=== PATIENT | male | born 1955 | race Caucasian/White ===

== ENCOUNTER → 2024-02-17 07:28 | Outpatient (REF) | payer MEDICARE, SELFPAY ==
[2024-02-17 08:47] LABS: HDL Cholesterol 51 mg/dl; LDL Cholesterol, Calculated 90 mg/dl; Total Cholesterol 159 mg/dl (50-199); Triglyceride 94 mg/dl (10-149); Very Low Density Lipoprotein 18 mg/dl (0-30)
[2024-02-17 10:57] LABS: TSH 3.27 uIU/ml (0.47-4.68)
== END ==
LOC: REG 07:28
PROVIDERS: ATTENDING PHYSICIAN Specialist
DX: I10 Essential (primary) hypertension (principal); E03.9 Hypothyroidism, unspecified
CPT/HCPCS: 36415; 80061; 84443

== ENCOUNTER → 2024-03-22 12:36 | Outpatient (REF) | payer MEDICARE, SELFPAY ==
[2024-03-22 14:27] LABS: Erythrocyte Sed Rate 1 mm/hour (0-20)
[2024-03-22 15:11] LABS: C-Reactive Protein < 5.00 mg/L (0.0-10.00)
== END ==
LOC: REG 12:36
PROVIDERS: ATTENDING PHYSICIAN Specialist; FAMILY PHYSICIAN Family Medicine
DX: I10 Essential (primary) hypertension (principal)
CPT/HCPCS: 36415; 85652; 86140

== ENCOUNTER → 2024-06-13 07:27 | Outpatient (REF) | payer MEDICARE, SELFPAY ==
[2024-06-13 10:11] LABS: TSH 4.63 uIU/ml (0.47-4.68)
== END ==
LOC: REG 07:27
PROVIDERS: ATTENDING PHYSICIAN Family Medicine
DX: E03.9 Hypothyroidism, unspecified (principal)
CPT/HCPCS: 36415; 84443

== ENCOUNTER → 2024-08-08 07:55 | Outpatient (REF) | payer MEDICARE, SELFPAY ==
[2024-08-08 09:44] LABS: Free T4 1.32 ng/dl (0.78-2.19)
[2024-08-08 09:58] LABS: TSH 1.78 uIU/ml (0.47-4.68)
== END ==
LOC: REG 07:55
PROVIDERS: ATTENDING PHYSICIAN Family Medicine
DX: E03.9 Hypothyroidism, unspecified (principal)
CPT/HCPCS: 36415; 84439; 84443

== ENCOUNTER → 2024-10-26 07:22 | Outpatient (REF) | payer MEDICARE, SELFPAY ==
[2024-10-26 08:28] LABS: % Basophils 0.7 % (0-2); % Eosinophils 1.9 % (0-6); % Immature Granulocytes 0.2 % (0-0.5); % Lymphocytes 29.7 % (20.5-51.1); % Neutrophils 55.5 % (42.2-75.2); Absolute Eosinophils 0.1 10^3/uL (0-0.7); Absolute Lymphocytes 1.3 10^3/uL (1.2-3.4); Absolute Monocytes 0.5 10^3/uL (0.1-0.6); Absolute Neutrophils 2.4 10^3/uL (1.4-6.5); Hematocrit 45.3 % (39.0-52.0); Hemoglobin 15.7 g/dL (13.0-18.0); Mean Corp Hgb Conc. 34.7 g/dL (33.0-37.0); Mean Corpuscular Hgb 33.4 pg (27.0-31.0); Mean Corpuscular Volume 96.4 fL (80.0-94.0); Nucleated Red Blood Cells % 0 % (-); Platelet Count 143 10^3/uL (130-400); Red Cell Dist. Width 12.7 % (11.5-14.5); White Blood Cell Count 4.2 10^3/uL (4.8-10.8)
[2024-10-26 08:36] LABS: ALT (SGPT) 18 U/L (0-50); AST (SGOT) 27 U/L (17-59); Albumin 4.5 g/dl (3.5-5.0); Alkaline Phosphatase 61 U/L (38-126); Blood Urea Nitrogen 19 mg/dl (9-20); Calcium 9.3 mg/dl (8.4-10.2); Carbon Dioxide 33 mmol/L (22-30); Chloride 103 mmol/L (98-107); Glucose 85 mg/dl (70-99); HDL Cholesterol 52 mg/dl; Iron 149 ug/dl (49-181); LDL Cholesterol, Calculated 105 mg/dl; Magnesium 2.3 mg/dl (1.6-2.3); Sodium 140 mmol/L (135-145); Total Bilirubin 1.1 mg/dl (0.2-1.3); Total Cholesterol 179 mg/dl (50-199); Total Protein 7.2 g/dl (6.3-8.2); Triglyceride 110 mg/dl (10-149); Very Low Density Lipoprotein 22 mg/dl (0-30); eGFR > 60.00
[2024-10-26 08:49] LABS: Potassium 4.6 mmol/L (3.5-5.1)
[2024-10-26 08:54] LABS: Glycohemoglobin (HgbA1c) 4.9 % (4.0-5.6); Vitamin D, 25-OH*** 65.5 ng/mL (30-80)
[2024-10-26 11:08] LABS: PSA, Total - Screen 0.87 ng/ml (0.0-4.0)
[2024-10-26 11:27] LABS: Vitamin B12 565 pg/ml (239-931)
[2024-10-26 12:00] LABS: Erythrocyte Sed Rate 4 mm/hour (0-20)
[2024-10-27 21:01] LABS: Zinc 78.4 ug/dL (60.0-120.0)
== END ==
LOC: REG 07:22
PROVIDERS: ATTENDING PHYSICIAN Family Medicine; FAMILY PHYSICIAN Specialist
DX: I10 Essential (primary) hypertension (principal); E03.9 Hypothyroidism, unspecified; R79.9 Abnormal finding of blood chemistry, unspecified; R74.01 Elevation of levels of liver transaminase levels; R79.89 Other specified abnormal findings of blood chemistry; Z12.5 Encounter for screening for malignant neoplasm of prostate; Z13.1 Encounter for screening for diabetes mellitus; E87.5 Hyperkalemia; Z79.899 Other long term (current) drug therapy
CPT/HCPCS: 36415; 80053; 80061; 82306; 82607; 83036; 83540; 83735; 84443; 84630; 85025; 85652; G0103

== ENCOUNTER → 2024-12-26 07:31 | Outpatient (REF) | payer MEDICARE, SELFPAY ==
[2024-12-26 09:17] LABS: TSH Reflex To Free T4 2.08 uIU/ml (0.47-4.68)
== END ==
LOC: REG 07:31
PROVIDERS: ATTENDING PHYSICIAN Family Medicine
DX: E03.9 Hypothyroidism, unspecified (principal)
CPT/HCPCS: 36415; 84443

== ENCOUNTER → 2025-02-08 07:43 | Outpatient (REF) | payer MEDICARE, SELFPAY ==
[2025-02-08 10:09] LABS: HDL Cholesterol 54 mg/dl; LDL Cholesterol, Calculated 93 mg/dl; Total Cholesterol 164 mg/dl (50-199); Triglyceride 87 mg/dl (10-149); Very Low Density Lipoprotein 17 mg/dl (0-30)
[2025-02-08 10:28] LABS: TSH Reflex To Free T4 1.37 uIU/ml (0.47-4.68)
== END ==
LOC: REG 07:43
PROVIDERS: ATTENDING PHYSICIAN Family Medicine
DX: E78.00 Pure hypercholesterolemia, unspecified (principal)
CPT/HCPCS: 36415; 80061; 84443

== ENCOUNTER → 2025-05-15 14:45 | Outpatient (REF) | payer MEDICARE, SELFPAY | LOC: RCS 14:45 | PROVIDERS: ATTENDING PHYSICIAN Family Medicine | DX: R00.0 Tachycardia, unspecified (principal); Z86.16 Personal history of COVID-19 | CPT/HCPCS: 93306 ==

== ENCOUNTER → 2025-05-19 10:43 | Outpatient (REF) | payer MEDICARE, SELFPAY | LOC: RCS 10:43 | PROVIDERS: ATTENDING PHYSICIAN Family Medicine | DX: R00.0 Tachycardia, unspecified (principal); Z86.16 Personal history of COVID-19 | CPT/HCPCS: 93225; 93226 ==

== ENCOUNTER → 2025-06-14 07:18 | Outpatient (REF) | payer MEDICARE, SELFPAY ==
[2025-06-14 09:04] LABS: HDL Cholesterol 51 mg/dl; LDL Cholesterol, Calculated 102 mg/dl; Very Low Density Lipoprotein 16 mg/dl (0-30)
== END ==
LOC: REG 07:18
PROVIDERS: ATTENDING PHYSICIAN Family Medicine
DX: E03.9 Hypothyroidism, unspecified (principal); I10 Essential (primary) hypertension
CPT/HCPCS: 36415; 80061; 84439; 84443

== ENCOUNTER → 2025-10-02 07:07 | Outpatient (REF) | payer MEDICARE, SELFPAY ==
[2025-10-02 07:56] LABS: Hematocrit 47.3 % (39.0-52.0); Hemoglobin 15.5 g/dL (13.0-18.0); Mean Corp Hgb Conc. 32.8 g/dL (33.0-37.0); Mean Corpuscular Volume 96.7 fL (80.0-94.0); Nucleated Red Blood Cells % 0 % (-); Platelet Count 152 10^3/uL (130-400); Red Cell Dist. Width 12.6 % (11.5-14.5)
[2025-10-02 08:32] LABS: HDL Cholesterol 55 mg/dl; LDL Cholesterol, Calculated 93 mg/dl; Very Low Density Lipoprotein 21 mg/dl (0-30)
[2025-10-02 09:05] LABS: PSA, Total - Screen 0.97 ng/ml (0.0-4.0)
[2025-10-02 09:06] LABS: Cortisol, Random 19.0 ug/dl
== END ==
LOC: REG 07:07
PROVIDERS: ATTENDING PHYSICIAN Family Medicine
DX: E03.9 Hypothyroidism, unspecified (principal); E87.5 Hyperkalemia; I10 Essential (primary) hypertension; Z00.00 Encounter for general adult medical examination without abnormal findings
CPT/HCPCS: 36415; 80061; 82533; 84443; 85025; G0103